=== PATIENT | female | born 1990 | race Caucasian/White ===

== ENCOUNTER 2016-08-23 15:12 | Emergency (ER) | payer OTHER ==
[~2016-08-23] VITALS: Ht 175.3 cm; Wt 154.0 kg
[2016-08-23 15:18] VITALS: TEMP 36.7; Ht 175.3 cm; Wt 154.0 kg
--- NOTE | 2016-08-23 16:44 | EMERGENCY ROOM VISIT NOTE ---
History Report prepared by Jacques: Guero Hernandez Under the Supervision of: Dr. Bijal Calles M.D. First contact with patient: 16:30 Chief Complaint: ABDOMINAL PAIN Stated Complaint: STOMACH PAINS,BLEEDING WHEN GOING TO RESTROOM Nursing Triage Summary: Pt reports on Tuesday, when she had BM, there was blood on the toilet paper Pt reports there is now blood in toilet when having BM "there is pain in my stomach every time I eat" History of Present Illness The patient is a 26 year old female who presents to the Emergency Room with complaints of intermittent hematochezia beginning ten days prior to arrival. She currently rates her discomfort as a 5/10 in severity. The patient states she experienced blood in her stool two Álvaro's ago and attributed it to her menstrual cycle. She notes she experienced blood in her stool the following day , as well. The patient states there was still blood in her stool following the end of her period. She notes she went to [facility] three days ago, and they stated the patient had hemorrhoids. The patient denies having blood work done at the hospital, and she came to the ED today for a second opinion. She states she intermittently experiences abdominal pain on her left and right side with eating. The patient notes she ate pizza last night and experienced the abdominal pain. She states her last bowel movement today contained a little blood clot, as well. The patient notes she still has her gallbladder. She denies diarrhea and rectal pain. Source of History: patient Onset: 10 days [employer] Position: other (global) Symptom Intensity: 5/10 Quality: other (hematochezia) Timing: intermittent Associated Symptoms: + abdominal pain, + hematochezia, No diarrhea Review of Systems See HPI for pertinent positives & negatives. A total of 10 systems reviewed and were otherwise negative. Past Medical & Surgical Medical Problems: (1) Bronchitis (2) Leukemia Family History Cancer Heart disease Hypertension Social History Smoking Status: Never Smoker Marital Status: Occupation Status: unemployed Current/Historical Medications No Active Prescriptions or Reported Meds Allergies Coded Allergies: Amoxicillin (Verified Allergy, Unknown, UNKNOWN- CHILDHOOD, 08/23/16) Physical Exam Vital Signs Date Time Temp Pulse Resp B/P Pulse Ox O2 Delivery O2 Flow Rate FiO2 08/23/16 17:59 74 18 124/71 100 Room Air 08/23/16 15:18 36.7 77 18 97 Room Air Physical Exam Vital signs reviewed. General: Well-appearing female, in no significant distress. HEENT: No scleral icterus, PERRLA, neck supple. Atraumatic. Cardiovascular: Regular rate and rhythm, no extra sounds. Pulmonary: Clear to auscultation bilaterally, normal work of breathing. Abdomen: Morbidly obese. Diffusely tender. Soft, nondistended, positive bowel sounds. Rectal: Small skin tag to the rectum. no visualized hemorrhoid. Guaiac negative stool. No rectal fissure appreciated. Musculoskeletal: Atraumatic, no peripheral edema. Neurologic: Patient awake alert and oriented x 3, full strength in all 4 extremities. Cranial nerves 2 through 12 grossly intact. Skin: Warm, dry, no rash Medical Decision & Procedures ER Provider Diagnostic Interpretation: US results as stated below per my review and radiologist interpretation: Pain. Nausea. GALLBLADDER-ABD LIMITED CLINICAL HISTORY: RUQ pain nausea TECHNIQUE: Ultrasound COMPARISON STUDY: None FINDINGS: Several large gallstones. Gallbladder wall and/or duct system are normal. Common bile that measures 4 mm. Fatty infiltration of liver. Pancreas and right kidney are unremarkable. IMPRESSION: Gallstones. Normal caliber bile ducts. Fatty infiltration of liver. Electronically signed by: Gibson Tony M.D. 08/23/2016 5:46 PM Laboratory Results 08/23/16 16:50 Red Blood Count 3.95, Mean Corpuscular Volume 88.4, Mean Corpuscular Hemoglobin 30.1, Mean Corpuscular Hemoglobin Concent 34.1, Mean Platelet Volume 8.8, Neutrophils (%) (Auto) 45.2, Lymphocytes (%) (Auto) 42.2, Monocytes (%) (Auto) 8.1, Eosinophils (%) (Auto) 3.8, Basophils (%) (Auto) 0.4, Neutrophils # (Auto) 3.29, Lymphocytes # (Auto) 3.08, Monocytes # (Auto) 0.59, Eosinophils # (Auto) 0.28, Basophils # (Auto) 0.03 08/23/16 16:50 Test 08/23/16 16:50 White Blood Count 7.29 K/uL (4.8-10.8) Red Blood Count 3.95 M/uL (4.2-5.4) Hemoglobin 11.9 g/dL (12.0-16.0) Hematocrit 34.9 % (37-47) Mean Corpuscular Volume 88.4 fL (80-100) Mean Corpuscular Hemoglobin 30.1 pg (25-34) Mean Corpuscular Hemoglobin Concent 34.1 g/dl (32-36) Platelet Count 268 K/uL (130-400) Mean Platelet Volume 8.8 fL (7.4-10.4) Neutrophils (%) (Auto) 45.2 % Lymphocytes (%) (Auto) 42.2 % Monocytes (%) (Auto) 8.1 % Eosinophils (%) (Auto) 3.8 % Basophils (%) (Auto) 0.4 % Neutrophils # (Auto) 3.29 K/uL (1.4-6.5) Lymphocytes # (Auto) 3.08 K/uL (1.2-3.4) Monocytes # (Auto) 0.59 K/uL (0.11-0.59) Eosinophils # (Auto) 0.28 K/uL (0-0.5) Basophils # (Auto) 0.03 K/uL (0-0.2) RDW Standard Deviation 40.1 fL (36.4-46.3) RDW Coefficient of Variation 12.4 % (11.5-14.5) Immature Granulocyte % (Auto) 0.3 % Immature Granulocyte # (Auto) 0.02 K/uL (0.00-0.02) Anion Gap 8.0 mmol/L (3-11) Est Creatinine Clear Calc Drug Dose 227.1 ml/min Estimated GFR () 144.6 Estimated GFR (Non- 124.7 BUN/Creatinine Ratio 13.2 (10-20) Calcium Level 9.2 mg/dl (8.5-10.1) Total Bilirubin 0.8 mg/dl (0.2-1) Direct Bilirubin 0.1 mg/dl (0-0.2) Aspartate Amino Transf (AST/SGOT) 13 U/L (15-37) Alanine Aminotransferase (ALT/SGPT) 21 U/L (12-78) Alkaline Phosphatase 87 U/L (45-117) Total Protein 7.4 gm/dl (6.4-8.2) Albumin 3.5 gm/dl (3.4-5.0) Laboratory results per my review. ED Course 1637: Past medical records reviewed. The patient was evaluated in room B11B. A complete history and physical examination was performed. 1824: Upon reevaluation, the patient appeared to have improvement of her symptoms. I discussed findings with her. She verbalized agreement of the treatment plan. The patient was discharged home. Medical Decision Differential diagnosis: Etiologies such as diverticulosis, AVM, coagulopathy, colitis, inflammatory bowel disease, malignancy, Martina-Lang tear, esophagitis, peptic ulcer disease , variceal bleed, gastritis, epistaxis, fissure, hemorrhoids, as well as others were entertained. This patient was evaluated and appeared to be in no significant distress. Physical examination reveals a morbidly obese female without specific abdominal tenderness. Rectal exam reveals no gross blood, guaiac negative stools. Laboratory work reveals stable blood counts. An ultrasound of right upper quadrant was performed that reveals cholelithiasis, no evidence of cholecystitis. Patient was informed of the findings. She was advised to maintain a soft stool. Patient likely has an internal hemorrhoid or rectal fissure the periodically bleeds. She was advised to follow-up with primary care physician or gastroenterology as needed. She will return to the ER for worsening of symptoms or any medical concerns. Impression Primary Impression: Rectal bleeding Scribe Attestation The scribe's documentation has been prepared under my direction and personally reviewed by me in its entirety. I confirm that the note above accurately reflects all work, treatment, procedures, and medical decision making performed by me. Departure Information Dispostion Home / Self-Care Prescriptions No Active Prescriptions or Reported Meds Referrals No Doctor, Assigned (PCP) Forms HOME CARE DOCUMENTATION FORM, IMPORTANT VISIT INFORMATION Patient Instructions My [facility] Additional Instructions Diagnosis: Rectal bleeding Keep stools soft, Colace 100 mg twice daily as needed for stool softening. Drink plenty of clear fluids and increase the fiber in your diet. Follow-up with a primary care physician as soon as possible. Return to the ER for worsening of symptoms or any medical concerns.
[2016-08-23 17:02] LABS: BASO % 0.4 %; BASO ABS # 0.03 K/uL (0-0.2); COMPLETE YES; EOS % 3.8 %; HEMATOCRIT 34.9 % (37-47); IG% 0.3 %; LYMPH % 42.2 %; LYMPH ABS # 3.08 K/uL (1.2-3.4); MEAN CELL VOLUME 88.4 fL (80-100); MEAN CORPUSCULAR HEMOGLOBIN 30.1 pg (25-34); MEAN CORPUSCULAR HGB CONC 34.1 g/dl (32-36); MEAN PLATELET VOLUME 8.8 fL (7.4-10.4); MONO % 8.1 %; NEUT % 45.2 %; PLATELET COUNT 268 K/uL (130-400); RED BLOOD COUNT 3.95 M/uL (4.2-5.4); WHITE BLOOD COUNT 7.29 K/uL (4.8-10.8)
[2016-08-23 17:19] LABS: BUN/CREATININE RATIO 13.2 (10-20); CALCIUM 9.2 mg/dl (8.5-10.1); CREATININE 0.59 mg/dl (0.60-1.20); POTASSIUM 3.7 mmol/L (3.5-5.1)
--- NOTE | 2016-08-23 17:48 | DIAGNOSTIC IMAGING REPORT ---
Pain. Nausea. GALLBLADDER-ABD LIMITED CLINICAL HISTORY: RUQ pain nausea TECHNIQUE: Ultrasound COMPARISON STUDY: None FINDINGS: Several large gallstones. Gallbladder wall and/or duct system are normal. Common bile that measures 4 mm. Fatty infiltration of liver. Pancreas and right kidney are unremarkable. IMPRESSION: Gallstones. Normal caliber bile ducts. Fatty infiltration of liver. Electronically signed by: Gibson Tony M.D. 08/23/2016 5:46 PM Dictated Date/Time: 08/23/2016 5:45 PM
[2016-08-23 17:59] VITALS: BP 124/71; PULSE 74; O2SAT 100
[2017-02-17] MEDS ORDERED: METH4PAK PO (13:56)
== END 2016-08-23 18:30 | disposition home or self-care (01) ==
LOC: C.EDB 15:14
DX: K62.5 Hemorrhage of anus and rectum (principal); C95.91 Leukemia, unspecified, in remission

== ENCOUNTER 2016-11-10 15:00 | Emergency (ER) | payer OTHER ==
[~2016-11-10] VITALS: Ht 175.3 cm; Wt 154.6 kg
[2016-11-10 15:07] VITALS: TEMP 37.4; Ht 175.3 cm; Wt 154.6 kg
[2016-11-10] MEDS ORDERED: SODIUM CHLORIDE 0.9% 1000ML 1,000 ML IV STA (15:30)
[2016-11-10 16:14] LABS: BASO % 0.4 %; BASO ABS # 0.03 K/uL (0-0.2); COMPLETE YES; EOS % 3.4 %; HEMATOCRIT 34.6 % (37-47); IG% 0.1 %; LYMPH % 38.7 %; MEAN CELL VOLUME 88.7 fL (80-100); MEAN CORPUSCULAR HEMOGLOBIN 30.3 pg (25-34); MEAN CORPUSCULAR HGB CONC 34.1 g/dl (32-36); MEAN PLATELET VOLUME 9.5 fL (7.4-10.4); MONO % 7.1 %; NEUT % 50.3 %; PLATELET COUNT 252 K/uL (130-400); WHITE BLOOD COUNT 6.72 K/uL (4.8-10.8)
[2016-11-10 16:22] LABS: URINE APPEARANCE CLOUDY (CLEAR); URINE BILIRUBIN NEG (NEG); URINE COLOR YELLOW; URINE EPITHELIAL CELL AUTO >30 /lpf (0-5); URINE NITRITE NEG (NEG); URINE SPECIFIC GRAVITY 1.026 (1.000-1.030); UROBILINOGEN NEG (NEG); ZZUR CULT IF INDIC CLEAN CATCH YES
[2016-11-10 16:30] LABS: BUN/CREATININE RATIO 16.5 (10-20); CALCIUM 9.1 mg/dl (8.5-10.1); CREATININE 0.56 mg/dl (0.60-1.20); POTASSIUM 3.7 mmol/L (3.5-5.1)
[2016-11-10 16:32] LABS: MANUAL MICROSCOPIC REQUIRED? NO; REVIEW REQ? NO
[2016-11-10] MEDS ORDERED: OMEP40CA41 PO (17:25)
--- NOTE | 2016-11-10 17:28 | EMERGENCY ROOM VISIT NOTE ---
History First contact with patient: 15:15 Chief Complaint: ABDOMINAL PAIN Stated Complaint: STOMACH PAIN, RT SIDE, EAR NOISES RT SIDE History of Present Illness The patient is a 26 year old female who presents to the Emergency Room with complaints of abdominal pain which has been intermittent for 3 days. The patient states that she has been experiencing a sharp, stabbing pain in her upper abdomen over the past 3 days. She denies any pain at this time. She denies any nausea or vomiting associated with the pain. She denies any changes in bowel movements, urinary symptoms or shortness of breath. She is not able to correlate the pain with eating or other activities. She denies any history of abdominal issues. She does state that she was seen here for abdominal pain and had a gallbladder ultrasound which she believes showed gallstones or kidney stones. The patient also reports a "whooshing" noise in her right ear for the past few weeks. She denies any pain in the ear. Review of Systems A complete 10 point review of systems was reviewed with the patient with pertinent positives and negatives as per history of present illness. All else were negative. Past Medical/Surgical History Medical Problems: (1) Bronchitis (2) Leukemia Family History Cancer Heart disease Hypertension Social History Smoking Status: Never Smoker Marital Status: Occupation Status: unemployed Current/Historical Medications Scheduled Omeprazole (Prilosec), 40 MG PO DAILY Physical Exam Vital Signs Date Time Temp Pulse Resp B/P (MAP) Pulse Ox O2 Delivery O2 Flow Rate FiO2 11/10/16 17:42 74 18 127/76 98 11/10/16 15:07 37.4 82 20 131/87 99 Room Air Physical Exam VITALS: Vitals are noted on the nurse's note and reviewed by myself. Vital signs stable. GENERAL: This is a 26-year-old female, in no acute distress, nondiaphoretic, well-developed well-nourished. EARS: External auditory canals clear, tympanic membranes pearly rbock without erythema or effusion bilaterally. EYES: Pupils equal round and reactive to light and accommodation. MOUTH: Mucous membranes moist. Tonsils are not enlarged. Pharynx without erythema or exudate. HEART: Regular rate and rhythm without murmurs gallops or rubs. LUNGS: Clear to auscultation bilaterally without wheezes, rales or rhonchi. ABDOMEN: Positive bowel sounds x 4. Soft, nontender to palpation. Negative Leblanc sign. NEURO: Patient was alert and oriented to person place and time. Medical Decision & Procedures Laboratory Results 11/10/16 16:00 Red Blood Count 3.90, Mean Corpuscular Volume 88.7, Mean Corpuscular Hemoglobin 30.3, Mean Corpuscular Hemoglobin Concent 34.1, Mean Platelet Volume 9.5, Neutrophils (%) (Auto) 50.3, Lymphocytes (%) (Auto) 38.7, Monocytes (%) (Auto) 7.1, Eosinophils (%) (Auto) 3.4, Basophils (%) (Auto) 0.4, Neutrophils # (Auto) 3.37, Lymphocytes # (Auto) 2.60, Monocytes # (Auto) 0.48, Eosinophils # (Auto) 0.23, Basophils # (Auto) 0.03 11/10/16 16:00 Test 11/10/16 16:00 11/10/16 16:04 White Blood Count 6.72 K/uL (4.8-10.8) Red Blood Count 3.90 M/uL (4.2-5.4) Hemoglobin 11.8 g/dL (12.0-16.0) Hematocrit 34.6 % (37-47) Mean Corpuscular Volume 88.7 fL (80-100) Mean Corpuscular Hemoglobin 30.3 pg (25-34) Mean Corpuscular Hemoglobin Concent 34.1 g/dl (32-36) Platelet Count 252 K/uL (130-400) Mean Platelet Volume 9.5 fL (7.4-10.4) Neutrophils (%) (Auto) 50.3 % Lymphocytes (%) (Auto) 38.7 % Monocytes (%) (Auto) 7.1 % Eosinophils (%) (Auto) 3.4 % Basophils (%) (Auto) 0.4 % Neutrophils # (Auto) 3.37 K/uL (1.4-6.5) Lymphocytes # (Auto) 2.60 K/uL (1.2-3.4) Monocytes # (Auto) 0.48 K/uL (0.11-0.59) Eosinophils # (Auto) 0.23 K/uL (0-0.5) Basophils # (Auto) 0.03 K/uL (0-0.2) RDW Standard Deviation 39.9 fL (36.4-46.3) RDW Coefficient of Variation 12.5 % (11.5-14.5) Immature Granulocyte % (Auto) 0.1 % Immature Granulocyte # (Auto) 0.01 K/uL (0.00-0.02) Anion Gap 6.0 mmol/L (3-11) Est Creatinine Clear Calc Drug Dose 239.8 ml/min Estimated GFR () 147.1 Estimated GFR (Non- 126.9 BUN/Creatinine Ratio 16.5 (10-20) Calcium Level 9.1 mg/dl (8.5-10.1) Total Bilirubin 0.6 mg/dl (0.2-1) Direct Bilirubin 0.1 mg/dl (0-0.2) Aspartate Amino Transf (AST/SGOT) 14 U/L (15-37) Alanine Aminotransferase (ALT/SGPT) 20 U/L (12-78) Alkaline Phosphatase 92 U/L (45-117) Total Protein 6.7 gm/dl (6.4-8.2) Albumin 3.1 gm/dl (3.4-5.0) Lipase 99 U/L (73-393) Urine Color YELLOW Urine Appearance CLOUDY (CLEAR) Urine pH 5.0 (4.5-7.5) Urine Specific Cable 1.026 (1.000-1.030) Urine Protein NEG (NEG) Urine Glucose (UA) NEG (NEG) Urine Ketones NEG (NEG) Urine Occult Blood NEG (NEG) Urine Nitrite NEG (NEG) Urine Bilirubin NEG (NEG) Urine Urobilinogen NEG (NEG) Urine Leukocyte Esterase MODERATE (NEG) Urine WBC (Auto) 5-10 /hpf (0-5) Urine RBC (Auto) 0-4 /hpf (0-4) Urine Hyaline Casts (Auto) 1-5 /lpf (0-5) Urine Epithelial Cells (Auto) >30 /lpf (0-5) Urine Bacteria (Auto) 1+ (NEG) Urine Test NEG (NEG) Medications Administered Medications (Trade) Dose Ordered Sig/Rena Route Start Time Stop Time Status Last Admin Dose Admin Sodium Chloride 1,000 ml @ 999 mls/hr Q1H1M STAT IV 11/10/16 15:30 11/10/16 16:30 DC 11/10/16 16:04 999 MLS/HR Medical Decision Differential diagnosis includes gallbladder disease, gastritis, peptic ulcer disease, GERD, colitis, among others. The patient is a 26-year-old female who presents today complaining of intermittent epigastric pain. Labs revealed no leukocytosis, anemia or concerning electrolyte abnormalities. Lipase was within normal limits. Kidney and liver functions were within normal limits. Urinalysis was not suggestive of infection. Urine was negative. The patient has had an ultrasound of her gallbladder in the past which did show gallstones. This could be contributing to her symptoms and she was given the information for a general surgeon. The patient's symptoms seem to be consistent with gastritis/GERD. She will be placed on omeprazole and was instructed to make some lifestyle changes to help with her symptoms. She was referred back to her PCP for further evaluation. The right ear was unremarkable on exam and the patient was referred to ENT for evaluation of this. Based on the patient's presentation and work up, I feel the patient is stable for outpatient treatment. The patient was educated to return to the emergency department for any worsening of their current condition or new/concerning symptoms. She will follow up with her PCP and Gen. surgery as needed. Medication Reconcilliation Current Medication List: was personally reviewed by me Blood Pressure Screening Patient's blood pressure: Normal blood pressure Impression Primary Impression: Epigastric abdominal pain Departure Information Dispostion Home / Self-Care Condition GOOD Prescriptions Omeprazole (PRILOSEC) 40 Mg Cap 40 MG PO DAILY for 14 Days, #14 CAP Prov: Imani Andrews .AIDA 11/10/16 Referrals No Doctor, Assigned (PCP) Luan Gan MD Ramondelli, Salvatore, M.D. Patient Instructions ED GERD, My [facility] Additional Instructions Take the omeprazole as prescribed. For pain control, you can use the following [id number] medicines (if >12 yo): - Regular strength (325mg/tab) Tylenol (acetaminophen) 2 tabs every 4-6 hours as needed. Do not exceed 12 tablets in a 24 hour period. Avoid taking more than 4 grams (4000 mg) of Tylenol per day. This includes any other sources of acetaminophen you may take on a regular basis. You should avoid spicy foods, tomato-based foods, citrus, alcohol, caffeine, chocolate as this may worsen your symptoms. You should not lie down for a few hours after eating to help lessen symptoms. You may follow up with General surgery (Dr. Wiggins) for further evaluation of your gallstones if you have persistent discomfort. Follow-up with ENT for further evaluation of your right ear symptoms. Follow-up with your primary care provider regarding all of your symptoms. Return to the emergency department with any severe abdominal pain, vomiting, fevers, or any other worsening or new/concerning symptoms.
[2016-11-10 17:42] VITALS: BP 127/76; PULSE 74; O2SAT 98
== END 2016-11-10 17:44 | disposition home or self-care (01) ==
LOC: C.EDB 15:02 → C.EDA 17:44
DX: R10.13 Epigastric pain (principal); Z85.6 Personal history of leukemia; Z79.899 Other long term (current) drug therapy; Z80.9 Family history of malignant neoplasm, unspecified; Z82.49 Family history of ischemic heart disease and other diseases of the circulatory system

== ENCOUNTER 2017-01-14 14:58 | Emergency (ER) | payer OTHER ==
[~2017-01-14] VITALS: Ht 175.3 cm; Wt 156.3 kg
[2017-01-14 15:01] VITALS: Ht 175.3 cm; Wt 156.3 kg
--- NOTE | 2017-01-14 15:53 | DIAGNOSTIC IMAGING REPORT ---
CHEST ONE VIEW PORTABLE HISTORY: 27 years-old Female sob acute shortness of breath. COMPARISON: None available. TECHNIQUE: Portable upright AP view of the chest FINDINGS: Cardiomediastinal and hilar silhouettes are within normal limits. There is no pneumothorax, pleural effusion or focal airspace consolidation. No overt pulmonary edema. Patient obesity is noted. Bones about the chest are grossly intact. IMPRESSION: No acute cardiopulmonary process. The above report was generated using voice recognition software. It may contain grammatical, syntax or spelling errors. Electronically signed by: Anthony Russell M.D. 01/14/2017 3:51 PM Dictated Date/Time: 01/14/2017 3:51 PM
[2017-01-14 16:17] LABS: BASO % 0.3 %; BASO ABS # 0.02 K/uL (0-0.2); COMPLETE YES; HEMATOCRIT 34.9 % (37-47); IG% 0.1 %; LYMPH % 34.3 %; MEAN CELL VOLUME 88.8 fL (80-100); MEAN CORPUSCULAR HEMOGLOBIN 29.5 pg (25-34); MEAN CORPUSCULAR HGB CONC 33.2 g/dl (32-36); MONO % 6.4 %; NEUT % 56.9 %; PLATELET COUNT 280 K/uL (130-400); RED BLOOD COUNT 3.93 M/uL (4.2-5.4); WHITE BLOOD COUNT 6.99 K/uL (4.8-10.8)
[2017-01-14 16:24] LABS: PROTHROMBIN TIME (PATIENT) 10.3 SECONDS (9.0-12.0)
[2017-01-14 16:38] LABS: BLOOD UREA NITROGEN 9 mg/dl (7-18); BUN/CREATININE RATIO 14.9 (10-20); CALCIUM 9.5 mg/dl (8.5-10.1); CARBON DIOXIDE 27 mmol/L (21-32); CHLORIDE 105 mmol/L (98-107); CREATININE 0.63 mg/dl (0.60-1.20); GLUCOSE 111 mg/dl (70-99); POTASSIUM 3.4 mmol/L (3.5-5.1); SODIUM 140 mmol/L (136-145)
[2017-01-14 16:40] LABS: PREG INTERNAL NEGATIVE QC NEG CLEAR BACKGROUND; PREG INTERNAL POSITIVE QC POS CONTROL LINE
--- NOTE | 2017-01-14 16:50 | DIAGNOSTIC IMAGING REPORT ---
PELVIC ULTRASOUND, TRANSABDOMINAL AND TRANSVAGINAL HISTORY: abnormal uterine bleeding COMPARISON: None. FINDINGS: Uterus: 7.6 x 4.6 x 4.7 cm. There is a 5.9 x 4.9 x 4.9 cm heterogeneous lesion within the left side of the uterus which demonstrates posterior shadowing. This favors a fibroid. Endometrial stripe: Top normal in thickness measuring 1.4 cm. The endometrial stripe is slightly heterogeneous and demonstrates mobile debris suggestive of blood products. Right ovary: Normal in size and demonstrates normal color flow. Dominant 3.3 cm cyst. Left ovary: Normal in size and demonstrates normal color flow. Partially obscured by the uterine fibroid. Miscellaneous:No pelvic free fluid. IMPRESSION: 1. A 5.9 x 4.9 x 4.9 cm lesion within the left side of the uterus. This likely represents an intramural fibroid. 2. A 3.3 cm right ovarian simple cyst. 3. The endometrial stripe is top normal in thickness and is heterogeneous demonstrating mobile debris. This is suggestive of blood products. Follow-up pelvic ultrasound is recommended to ensure resolution. Gynecologic consultation is also recommended. Electronically signed by: Toni Malone M.D. 01/14/2017 4:49 PM Dictated Date/Time: 01/14/2017 4:46 PM
--- NOTE | 2017-01-14 17:49 | EMERGENCY ROOM VISIT NOTE ---
History Report prepared by Jacques: Daniel Bose Under the Supervision of: Dr. Dulce Maria Espinosa D.O. First contact with patient: 15:05 Chief Complaint: VAGINAL BLEEDING Stated Complaint: HEAVY BLEEDING/CLOTS FOR 2 MONTHS History of Present Illness The patient is a 27 year old female who presents to the Emergency Room with complaints of persistent vaginal bleeding beginning two months ago. She states that she has had two days without bleeding within the past two months. She states that she began passing large clots yesterday. The patient also complains of shakiness and nausea while passing the clots. She denies any abnormal abdominal pain, dizziness, or vomiting. She states that she has had some increased shortness of breath recently. The patient has no history of abnormal menstrual periods. She estimates that she was 11-12 years old when she initially got her period. She notes that she has a history of early onset menopause around the age of 28. The patient is not on control. Source of History: patient Onset: Two months ago Position: other (vagina) Quality: other (bleeding) Timing: other (persistent) Associated Symptoms: + SOB, + nausea (while passing clots), No vomiting, No abdominal pain (abnormal) Note: The patient also complains of shakiness while passing the clots. Review of Systems See HPI for pertinent positives & negatives. A total of 10 systems reviewed and were otherwise negative. Past Medical & Surgical Medical Problems: (1) Bronchitis (2) Leukemia Family History Cancer Heart disease Hypertension Social History Smoking Status: Never Smoker Marital Status: Occupation Status: unemployed Current/Historical Medications No Active Prescriptions or Reported Meds Allergies Coded Allergies: Amoxicillin (Verified Allergy, Unknown, UNKNOWN- CHILDHOOD, 08/23/16) Physical Exam Vital Signs Date Time Temp Pulse Resp B/P (MAP) Pulse Ox O2 Delivery O2 Flow Rate FiO2 01/14/17 17:52 36.9 90 20 159/89 96 01/14/17 17:37 90 20 159/89 96 Room Air 01/14/17 15:01 36.9 79 16 126/91 97 Room Air Physical Exam GENERAL: alert, well appearing, well nourished, no distress, non-toxic EYE EXAM: normal conjunctiva, PERRL and EOM's grossly intact OROPHARYNX: no exudate, no erythema, lips, buccal mucosa, and tongue normal and mucous membranes are moist NECK: supple, no nuchal rigidity, no adenopathy, non-tender LUNGS: Clear to auscultation. Normal chest wall mechanics HEART: no murmurs, S1 normal and S2 normal ABDOMEN: abdomen obese, soft, non-tender, normo-active bowel sounds, no masses, no rebound or guarding. BACK: Back is symmetrical on inspection and there is no deformity, no midline tenderness, no CVA tenderness. SKIN: no rashes and no bruising UPPER EXTREMITIES: upper extremities are grossly normal. LOWER EXTREMITIES: No pitting edema. NEURO EXAM: Normal sensorium, cranial nerves II-XII grossly intact, normal speech, no gross weakness of arms, no gross weakness of legs. Medical Decision & Procedures ER Provider Diagnostic Interpretation: Radiology results have been interpreted by the radiologist and reviewed by me. PELVIC ULTRASOUND, TRANSABDOMINAL AND TRANSVAGINAL FINDINGS: Uterus: 7.6 x 4.6 x 4.7 cm. There is a 5.9 x 4.9 x 4.9 cm heterogeneous lesion within the left side of the uterus which demonstrates posterior shadowing. This favors a fibroid. Endometrial stripe: Top normal in thickness measuring 1.4 cm. The endometrial stripe is slightly heterogeneous and demonstrates mobile debris suggestive of blood products. Right ovary: Normal in size and demonstrates normal color flow. Dominant 3.3 cm cyst. Left ovary: Normal in size and demonstrates normal color flow. Partially obscured by the uterine fibroid. Miscellaneous:No pelvic free fluid. IMPRESSION: 1. A 5.9 x 4.9 x 4.9 cm lesion within the left side of the uterus. This likely represents an intramural fibroid. 2. A 3.3 cm right ovarian simple cyst. 3. The endometrial stripe is top normal in thickness and is heterogeneous demonstrating mobile debris. This is suggestive of blood products. Follow-up pelvic ultrasound is recommended to ensure resolution. Gynecologic consultation is also recommended. Electronically signed by: Toni Malone M.D. 01/14/2017 4:49 PM CHEST ONE VIEW PORTABLE FINDINGS: Cardiomediastinal and hilar silhouettes are within normal limits. There is no pneumothorax, pleural effusion or focal airspace consolidation. No overt pulmonary edema. Patient obesity is noted. Bones about the chest are grossly intact. IMPRESSION: No acute cardiopulmonary process. The above report was generated using voice recognition software. It may contain grammatical, syntax or spelling errors. Electronically signed by: Anthony Russell M.D. 01/14/2017 3:51 PM Laboratory Results 01/14/17 15:50 Red Blood Count 3.93, Mean Corpuscular Volume 88.8, Mean Corpuscular Hemoglobin 29.5, Mean Corpuscular Hemoglobin Concent 33.2, Mean Platelet Volume 9.0, Neutrophils (%) (Auto) 56.9, Lymphocytes (%) (Auto) 34.3, Monocytes (%) (Auto) 6.4, Eosinophils (%) (Auto) 2.0, Basophils (%) (Auto) 0.3, Neutrophils # (Auto) 3.97, Lymphocytes # (Auto) 2.40, Monocytes # (Auto) 0.45, Eosinophils # (Auto) 0.14, Basophils # (Auto) 0.02 01/14/17 15:50 Test 01/14/17 15:50 White Blood Count 6.99 K/uL (4.8-10.8) Red Blood Count 3.93 M/uL (4.2-5.4) Hemoglobin 11.6 g/dL (12.0-16.0) Hematocrit 34.9 % (37-47) Mean Corpuscular Volume 88.8 fL (80-100) Mean Corpuscular Hemoglobin 29.5 pg (25-34) Mean Corpuscular Hemoglobin Concent 33.2 g/dl (32-36) Platelet Count 280 K/uL (130-400) Mean Platelet Volume 9.0 fL (7.4-10.4) Neutrophils (%) (Auto) 56.9 % Lymphocytes (%) (Auto) 34.3 % Monocytes (%) (Auto) 6.4 % Eosinophils (%) (Auto) 2.0 % Basophils (%) (Auto) 0.3 % Neutrophils # (Auto) 3.97 K/uL (1.4-6.5) Lymphocytes # (Auto) 2.40 K/uL (1.2-3.4) Monocytes # (Auto) 0.45 K/uL (0.11-0.59) Eosinophils # (Auto) 0.14 K/uL (0-0.5) Basophils # (Auto) 0.02 K/uL (0-0.2) RDW Standard Deviation 40.6 fL (36.4-46.3) RDW Coefficient of Variation 12.5 % (11.5-14.5) Immature Granulocyte % (Auto) 0.1 % Immature Granulocyte # (Auto) 0.01 K/uL (0.00-0.02) Prothrombin Time 10.3 SECONDS (9.0-12.0) Prothromb Time International Ratio 1.0 (0.9-1.1) Anion Gap 8.0 mmol/L (3-11) Est Creatinine Clear Calc Drug Dose 212.7 ml/min Estimated GFR () 140.5 Estimated GFR (Non- 121.2 BUN/Creatinine Ratio 14.9 (10-20) Calcium Level 9.5 mg/dl (8.5-10.1) Troponin I < 0.015 ng/ml (0-0.045) Human Chorionic Gonadotropin, Qual NEG (NEG) Laboratory results per my review. ECG Indication: SOB/dyspnea Rate (beats per minute): 69 Rhythm: normal sinus Findings: no acute ischemic change, no ectopy, other (normal axis. Normal intervals. ) ED Course 1515: The patient was evaluated in room B10. A complete history and physical exam was performed. 1742: Upon reevaluation, the patient is feeling better. I discussed the findings and the treatment plan with the patient. She verbalizes agreement and understanding. She was discharged home. Medical Decision Differential diagnosis: Etiologies such as ectopic , dysfunction uterine bleeding, bleeding dyscrasia, trauma, infection, as well as others were entertained. Pt well appearing here. Not orthostatic. No hx of STD's. H/H stable. Discussed all results and f/u with residential fee appraiser. Discussed sx to watch/return for, she verbalized understanding and was agreeable with plan. No other sx of bleeding. Doubt bleeding dyscrasia. Nml plts. Likely atypical bleeding related to fibroid. Impression Primary Impression: Abnormal vaginal bleeding Additional Impression: Uterine fibroid Scribe Attestation The scribe's documentation has been prepared under my direction and personally reviewed by me in its entirety. I confirm that the note above accurately reflects all work, treatment, procedures, and medical decision making performed by me. Departure Information Dispostion Home / Self-Care Prescriptions No Active Prescriptions or Reported Meds Referrals No Doctor, Assigned (PCP) Patient Instructions My [facility] Additional Instructions Please follow up with your HELP DESK ADMINISTRATOR. If you have any worsening pain, worsening bleeding, develop passing out or lightheadedness, vomiting, fevers, chest pain, trouble breathing, or you have any other new concerns, please return to the emergency room. Problem Qualifiers Additional Impression: Uterine fibroid Uterine leiomyoma location: unspecified location Qualified Codes: D25.9 - Leiomyoma of uterus, unspecified
[2017-01-14 17:52] VITALS: BP 159/89; PULSE 90; TEMP 36.9; O2SAT 96
== END 2017-01-14 17:54 | disposition home or self-care (01) ==
LOC: C.EDB 14:59
DX: D25.9 Leiomyoma of uterus, unspecified (principal); N39.3 Stress incontinence (female) (male); Z88.1 Allergy status to other antibiotic agents; Z80.9 Family history of malignant neoplasm, unspecified; Z82.49 Family history of ischemic heart disease and other diseases of the circulatory system

== ENCOUNTER 2017-07-18 13:31 | Emergency (ER) | payer OTHER ==
[~2017-07-18] VITALS: Ht 175.3 cm; Wt 165.0 kg
[2017-07-18 13:33] VITALS: TEMP 36.4; Ht 175.3 cm; Wt 165.0 kg
--- NOTE | 2017-07-18 14:11 | DIAGNOSTIC IMAGING REPORT ---
RIGHT SHOULDER 3 VIEWS CLINICAL HISTORY: Right shoulder pain. FINDINGS: 3 views of the right shoulder are obtained. No prior studies are available for comparison at the time of dictation. The skeletal structures are well mineralized. No fracture or dislocation is seen. The glenohumeral and acromioclavicular joints are well-maintained. The overlying soft tissues are normal in appearance. The imaged right upper lobe lung parenchyma appears clear. IMPRESSION: Unremarkable radiographic assessment of the right shoulder. Electronically signed by: Boris Dickerson M.D. 07/18/2017 2:10 PM Dictated Date/Time: 07/18/2017 2:09 PM
--- NOTE | 2017-07-18 14:34 | EMERGENCY ROOM VISIT NOTE ---
History First contact with patient: 13:37 Chief Complaint: SHOULDER PAIN Stated Complaint: SHOULDER PAIN WHEN LIFTING ARM History of Present Illness The patient is a 27 year old female who presents to the Emergency Room with complaints of persistent right shoulder pain. The patient reports that she fell approximately 2-3 weeks ago and landed on a sidewalk. The patient reports that she landed on her elbow. The pain initially was at the elbow, but then started to cause discomfort in her shoulder. She reports that the elbow pain improved. She denies any pain extending into the posterior shoulder or neck region. She denies any paresthesias or numbness of the right upper extremity. Range of motion worsens her discomfort. She denies any paresthesias or numbness of the right upper extremity, and is right-hand dominant. She denies any pain that awakens her at nighttime. She currently rates her discomfort a 10 out of 10. Review of Systems 10 system review was performed and was negative except for pertinent positives and negatives as indicated in history of present illness Past Medical/Surgical History Medical Problems: (1) Bronchitis (2) Leukemia Family History Cancer Heart disease Hypertension Social History Smoking Status: Never Smoker Alcohol Use: none Marital Status: Occupation Status: employed Physical Exam Vital Signs Date Time Temp Pulse Resp B/P (MAP) Pulse Ox O2 Delivery O2 Flow Rate FiO2 07/18/17 13:33 36.4 78 20 136/83 96 Room Air Physical Exam CONSTITUTIONAL: Healthy and well nourished. Alert and oriented X 3 with positive affect. Patient does not appear in any acute distress. HEENT: Normocephalic, atraumatic. Pupils equal, round and reactive. NECK: Full active range of motion without discomfort. MUSCULOSKELETAL: Examination of the right shoulder does not show any soft tissue edema or ecchymosis. The patient has minimal tenderness to palpation over the anterior shoulder region. She has no focal tenderness through the bicipital groove or biceps/triceps musculature. She has no worsening pain with gentle internal or external rotation. She has full active range of motion of the shoulder with only mild discomfort with movement above shoulder level. Negative drop arm test. Negative empty can sign. No focal tenderness over the acromioclavicular joint. Distal pulses are intact. INTEGUMENTARY: No rash or other significant dermatologic conditions noted. NEUROLOGIC: Left upper extremity and deltoid sensation are intact. Medical Decision & Procedures ER Provider Diagnostic Interpretation: My interpretation of right shoulder x-rays does not show any acute separation, fractures or dislocation. Radiologist report is as follows: RIGHT SHOULDER 3 VIEWS CLINICAL HISTORY: Right shoulder pain. FINDINGS: 3 views of the right shoulder are obtained. No prior studies are available for comparison at the time of dictation. The skeletal structures are well mineralized. No fracture or dislocation is seen. The glenohumeral and acromioclavicular joints are well-maintained. The overlying soft tissues are normal in appearance. The imaged right upper lobe lung parenchyma appears clear. IMPRESSION: Unremarkable radiographic assessment of the right shoulder. ED Course Patient history and physical exam were performed. Nurse's notes were reviewed. Vital signs were reviewed and were normal. The patient refused any analgesics on initial exam. X-rays of the right shoulder were normal. The patient was advised that her symptoms are consistent with a soft tissue injury in her shoulder. The patient was encouraged to follow-up with [facility] for further reevaluation and management. Ice and elevation for swelling. Ibuprofen and Tylenol as needed for additional pain relief. The patient was happy with plan of care, voiced understanding of all discharge instructions, and rated her discomfort a 5 out of 10 at the conclusion of my exam. Medical Decision She does not have physical exam findings suggestive of an acute rotator cuff tear. X-rays are not suggestive of fracture, dislocation or acromioclavicular separation. I do not suspect cervical spine injury. Medication Reconcilliation Current Medication List: was personally reviewed by me Blood Pressure Screening Patient's blood pressure: Normal blood pressure Impression Primary Impression: Right shoulder strain Additional Impression: Status post fall Departure Information Referrals No Doctor, Assigned (PCP) Patient Instructions My [facility] Problem Qualifiers Primary Impression: Right shoulder strain Encounter type: initial encounter Qualified Codes: S46.911A - Strain of unspecified muscle, fascia and tendon at shoulder and upper arm level, right arm , initial encounter
[2017-07-18 14:37] VITALS: BP 143/94; PULSE 87; O2SAT 97
== END 2017-07-18 14:38 | disposition home or self-care (01) ==
LOC: C.EDB 13:33 → C.EDD 14:38
DX: S46.911A Strain of unspecified muscle, fascia and tendon at shoulder and upper arm level, right arm, initial encounter (principal); W19.XXXA Unspecified fall, initial encounter; C95.90 Leukemia, unspecified not having achieved remission; Z82.49 Family history of ischemic heart disease and other diseases of the circulatory system